=== PATIENT | male | born 1980 | race African-American/Black ===

== ENCOUNTER 2024-11-22 11:01 | Inpatient (IN) | payer OTHER ==
[~2024-11-22] VITALS: Ht 172.7 cm; Wt 121.0 kg
[2024-11-22 12:04] LABS: PLATELET COUNT (AUTO) 185 K/uL (150-450); RED BLOOD CELL COUNT(AUTO) 4.60 MIL/uL (4.50-5.90); RED CELL DISTRIBUTION WIDTH 13.9 % (11.5-14.5); WHITE BLOOD COUNT (AUTO) 5.2 K/uL (4.5-11.0)
[2024-11-22 12:20] LABS: ASPARTATE AMINOTRANSFERASE 29.0 U/L (15-37); TOTAL PROTEIN, SERUM 7.3 g/dL (6.4-8.2)
[2024-11-22 12:26] LABS: CALCIUM, TOTAL 8.7 mg/dL (8.8-10.5); CREATININE 1.11 mg/dL (0.60-1.30); GLOMERULAR FILTR. RATE CALC > 60 mL/min (>60); GLUCOSE,RANDOM 103 mg/dL (70-110); SODIUM SERUM 139 mmol/L (136-145); UREA NITROGEN, BLOOD 15 mg/dL (7-18)
[2024-11-22] MEDS: SODIUM CHLORIDE 0.9% 3,250 ML IV ONE (12:37)
[2024-11-22] MEDS ORDERED: IPRATROPIUM BROMIDE 0.5 MG/2.5 ML NEB SOLUTION NEB PRN (13:15)
[2024-11-22] MEDS ORDERED: ONDANSETRON HCL 4 MG/2 ML VIAL IVP PRN (13:15)
[2024-11-22] MEDS ORDERED: ALBUTEROL SULFATE 2.5 MG/0.5 ML NEB SOLUTION NEB PRN (13:15)
[2024-11-22] MEDS ORDERED: ACETAMINOPHEN 325 MG TABLET PO PRN (13:15)
[2024-11-22] MEDS: 1: MAGNESIUM SULFATE 2 GM, MVI, ADULT NO.1 WITH VIT K 10 ML, THIAMINE 100 MG, FOLIC ACID IV SCH (14:04)
[2024-11-22] MEDS: HEPARIN SODIUM,PORCINE 5,000 UNITS/ML VIAL SQ SCH (15:35)
[2024-11-22 21:25] VITALS: BP 132/90; PULSE 68; RESP 18; TEMP 98.8; O2SAT 99
[2024-11-22 23:45] LABS: APPEARANCE,URINE CLEAR (CLEAR); GLUCOSE, URINE (UA) NEGATIVE (NEGATIVE); LEUKOCYTE ESTERASE ,URINE NEGATIVE (NEGATIVE); NITRATE,URINE NEGATIVE (NEGATIVE); OCCULT BLOOD,URINE TRACE (NEGATIVE); PH,URINE DRUG SCREEN 6.0 (5.0-8.0); SPECIFIC GRAVITIY, URINE 1.022 (1.003-1.030)
[2024-11-22 23:51] LABS: ALCOHOL, URINE DRUG SCREEN NEGATIVE (NEGATIVE); AMPHET/METH SCREEN,URINE NEGATIVE (NEGATIVE); BARBITURATE SCREEN, URINE NEGATIVE (NEGATIVE); CANNABINOID SCREEN,URINE NEGATIVE (NEGATIVE); COCAINE SCREEN,URINE NEGATIVE (NEGATIVE); METHADONE SCREEN, URINE NEGATIVE (NEGATIVE)
[2024-11-22 23:52] LABS: SQUAMOUS EPITHELIAL CELL,UR Few /LPF (None Seen)
[2024-11-23 05:52] VITALS: BP 118/78; PULSE 69; RESP 18; TEMP 97.9; O2SAT 99
[2024-11-23 07:20] LABS: PLATELET COUNT (AUTO) 170 K/uL (150-450); RED BLOOD CELL COUNT(AUTO) 4.34 MIL/uL (4.50-5.90); RED CELL DISTRIBUTION WIDTH 13.8 % (11.5-14.5); WHITE BLOOD COUNT (AUTO) 6.1 K/uL (4.5-11.0)
[2024-11-23 07:31] LABS: CALCIUM, TOTAL 8.1 mg/dL (8.8-10.5); CREATININE 0.95 mg/dL (0.60-1.30); GLOMERULAR FILTR. RATE CALC > 60 mL/min (>60); GLUCOSE,RANDOM 86 mg/dL (70-110); SODIUM SERUM 142 mmol/L (136-145); UREA NITROGEN, BLOOD 14 mg/dL (7-18)
[2024-11-23] MEDS ORDERED: SODIUM CHLORIDE 0.9% 1,000 ML ONE (08:14)
[2024-11-23 08:44] VITALS: BP 130/92; PULSE 62; RESP 18; TEMP 97.7; O2SAT 99
[2024-11-23] MEDS ORDERED: LORazepam 2 MG/ML VIAL IVP PRN (10:30)
[2024-11-23 19:55] VITALS: BP 122/71; PULSE 71; RESP 18; TEMP 98.6; O2SAT 97
[2024-11-24 02:07] LABS: HEPATITIS C AB (EIA) Non Reactive (Non Reactive)
[2024-11-24 05:05] VITALS: BP 101/61; PULSE 66; RESP 18; TEMP 97.9; O2SAT 96
[2024-11-24 08:15] VITALS: BP 116/73; PULSE 64; RESP 18; TEMP 98.2; O2SAT 97
[2024-11-24] MEDS: MULTIVITAMINS WITH MINERALS, THERAPEUTIC TABLET PO SCH (08:49)
[2024-11-24] MEDS ORDERED: ACET-2247 PO (11:14)
[2024-11-24 20:15] VITALS: BP 108/72; PULSE 71; RESP 18; TEMP 98.4; O2SAT 96
== END 2024-11-24 21:12 | DRG 897 ==
LOC: EMS 11:06 → EDH 13:01 → 6S 21:15
PROVIDERS: ADMIT Internal Medicine; ATTEND Internal Medicine
DX: F10.239 Alcohol dependence with withdrawal, unspecified (principal); Z68.41 Body mass index [BMI] 40.0-44.9, adult; E66.01 Morbid (severe) obesity due to excess calories; E78.00 Pure hypercholesterolemia, unspecified; F41.9 Anxiety disorder, unspecified; Y90.9 Presence of alcohol in blood, level not specified; F14.90 Cocaine use, unspecified, uncomplicated; F17.210 Nicotine dependence, cigarettes, uncomplicated; K21.9 Gastro-esophageal reflux disease without esophagitis; G47.30 Sleep apnea, unspecified; I10 Essential (primary) hypertension; I25.2 Old myocardial infarction
CPT/HCPCS: 71045; 80048; 80076; 80307; 81001; 83735; 85025; 86803; 87340; 93005; 99285; J1644; J2060; J3411; J3475; J3490; J7030; 36415-L1; 36415-TC; J7613